=== PATIENT | male | born 1950 | race Caucasian/White ===

== ENCOUNTER 2020-03-14 22:29 | Emergency (ER) | payer BC, MEDICAID ==
[~2020-03-14] VITALS: Ht 170.2 cm; Wt 95.3 kg
--- NOTE | 2020-03-14 22:31 | NUR ---
PT [facility]. TAKEN TO BED 7
--- NOTE | 2020-03-14 22:33 | NUR ---
Dr. Ortiz examining patient.
[2020-03-14 22:36] VITALS: BP 132/72
[2020-03-14 23:03] VITALS: BP 132/72
--- NOTE | 2020-03-14 23:09 | NUR ---
69 Y/O M BIBA C/O CHOKING AFTER EATING CARNE ASADA TODAY. PT STATES THAT HE WAS EATING CARNE ASADA TODAY AND HE THINKS THAT IT WENT "DOWN THE WRONG PIPE." PT STATES THAT THIS HAPPENED TO HIM BEFORE BUT HIS PATTED HIM ON THE BACK AND RESOLVED THE PROBLEM. PER PT, HE IS "TRYING TO COUGH OUT THE FOOD BUT NOTHING IS COMING OUT, ONLY SALIVA." O2 SAT AT 98% RA. LUNG SOUNDS CLEAR UPON AUSCULTATION. RR EVEN AND UNLABORED. PT ATTACHED TO BEDSIDE MONITOR. BED LOCKED AND IN LOWEST POSITION, SIDE RAIL UP X1. WILL CONTINUE TO MONITOR. MHX: GA, POSSIBLE STENT, HTN NKA
--- NOTE | 2020-03-14 23:09 | NUR ---
ATTEMPTED TO DO PO CHALLENGE ON PT. PT ABLE TO SWALLOW BUT WITH DIFFICULTY. PER PT, IT SEEMS LIKE IT IS GETTING STUCK.
--- NOTE | 2020-03-14 23:39 | NUR ---
RAD AT BEDSIDE.
--- NOTE | 2020-03-15 00:39 | NUR ---
Patient discharged with v/s stable. Written and verbal after care instructions given and explained. Patient verbalized understanding. Ambulatory with steady gait. All questions addressed prior to discharge. Advised to follow up with PMD.
== END 2020-03-15 00:39 | disposition home or self-care (01) ==
LOC: MED 22:29
DX: R09.89 Other specified symptoms and signs involving the circulatory and respiratory systems (principal); R05 Cough; R07.9 Chest pain, unspecified
CPT/HCPCS: 71045; 99283; Q0092